=== PATIENT | female | born 1990 | race Two or more races ===

== ENCOUNTER 2017-04-26 12:26 | Emergency (ER) | payer OTHER ==
[~2017-04-26] VITALS: Ht 157.5 cm; Wt 75.7 kg
[2017-04-26 13:11] LABS: Basophils # (auto) 0 uL; Basophils % (auto) 0.6 % (0.0-2.0); DEFINITIVE VIEW TRANSMISSION; Eosinophils # (auto) 0.3 uL; Hematocrit 33.3 % (36.0-46.0); Hemoglobin 11.2 g/dL (12.2-16.2); Lymphocytes # (auto) 2.3 uL; Lymphocytes % (auto) 30.5 % (10.0-50.0); Mean Corpuscular Hemoglobin 23.5 pg (28.0-32.0); Mean Corpuscular Hgb Conc. 33.5 g/dL (32.0-36.0); Mean Platelet Volume 6.7 fL (7.4-10.4); Monocytes # (auto) 0.5 uL; Monocytes % (auto) 6.7 % (0.0-12.0); Neutrophils # (auto) 4.3 uL; Neutrophils % (auto) 58.2 % (37.0-80.0); Platelet Count (auto) 382 10^3/uL (140-450); Red Cell Distribution Width 15.3 % (11.6-16.0); White Blood Cell 7.4 10^3/uL (4.4-10.8)
[2017-04-26 13:40] LABS: Albumin 3.6 g/dL (3.4-5.0); BUN/Creatinine Ratio 16.1; Bilirubin, Total 0.6 mg/dL (0.2-1.0); Calcium 8.4 mg/dL (8.5-10.1); Potassium 3.9 mmol/L (3.5-5.1); Total Protein 8.2 g/dL (6.4-8.2)
[2017-04-26] MEDS ORDERED: SODIUM CHLORIDE 0.9% 1,000 ML IV ONE (16:12)
[2017-04-26 16:53] LABS: Urine Bilirubin Negative (Negative); Urine Color Yellow (Yellow); Urine Glucose Normal (Normal); Urine Ketone Negative (Negative); Urine Nitrite Negative (Negative); Urine RBC 10 /hpf (0 - 4); Urine Squamous Epithelial Cell FEW /hpf (<5); Urine Urobilinogen Normal (Negative)
[2017-04-26 16:55] LABS: Urine Blood 2+ /uL (Negative)
[2017-04-26] MEDS ORDERED: MECLIZINE HCL 25 MG TAB PO ONE (18:00)
[2017-04-26 19:01] VITALS: BP 114/84
== END 2017-04-26 19:06 | disposition home or self-care (01) ==
LOC: ER 12:29
DX: R55 Syncope and collapse (principal); B34.9 Viral infection, unspecified; R42 Dizziness and giddiness; K92.1 Melena
CPT/HCPCS: 36415; 70450; 80053; 81001; 82962; 83735; 84702; 85025; 93005; 94761; 96360; 99285; J7030; J8597